=== PATIENT | male | born 1985 | race Caucasian/White ===

== ENCOUNTER 2023-04-20 00:29 | Emergency (ER) | payer OTHER ==
[2023-04-20] MEDS ORDERED: Ibuprofen 800 MG TAB ONE (04:07)
== END 2023-04-20 04:10 ==
LOC: EEVIPCON 00:29 → ERS 00:29
DX: S93.401A Sprain of unspecified ligament of right ankle, initial encounter (principal); S90.812A Abrasion, left foot, initial encounter; S90.811A Abrasion, right foot, initial encounter; M25.512 Pain in left shoulder; I10 Essential (primary) hypertension; V86.95XA Unspecified occupant of 3- or 4- wheeled all-terrain vehicle (ATV) injured in nontraffic accident, initial encounter; Z55.6 Problems related to health literacy
CPT/HCPCS: 70450; 72125

== ENCOUNTER 2023-11-03 19:08 | Emergency (ER) | payer BC, OTHER | END 2023-11-03 19:38 | disposition home or self-care (01) | LOC: ERS 19:08 | DX: L23.7 Allergic contact dermatitis due to plants, except food (principal); I10 Essential (primary) hypertension; F17.210 Nicotine dependence, cigarettes, uncomplicated | CPT/HCPCS: 99282 ==